=== PATIENT | female | born 1995 | race Caucasian/White ===

== ENCOUNTER 2017-09-07 13:00 | Inpatient (IN) | payer OTHER, BC ==
[2017-09-07] MEDS: FLUoxetine 20 MG CAP PO (09:00)
[2017-09-07] MEDS ORDERED: ACETAMINOPHEN TAB 650MG DOSE (2X325MG) PO (20:15)
[2017-09-07] MEDS ORDERED: traZODone 50 MG TAB PO (20:15)
[2017-09-07] MEDS ORDERED: MAALOX 30 ML SUSP *UDC PO (20:15)
[2017-09-07] MEDS: LORazepam 1 MG TAB PO (20:52)
[2017-09-07] MEDS ORDERED: PILL CUTTER/CRUSHER XX (21:00)
[2017-09-08] MEDS: FLUoxetine 20 MG CAP PO (08:34)
[2017-09-08] MEDS: ESCITALOPRAM OXALATE 10 MG TAB (LEXAPRO) PO (11:29)
[2017-09-08] MEDS: hydrOXYzine 25 MG TAB PO (16:47)
[2017-09-08 17:56] LABS: KETONE, URINE AUTO RFX NEGATIVE (NEGATIVE); LEUKOCYTE ESTERASE UR AUTO RFX NEGATIVE (NEGATIVE); NITRITE, URINE AUTO RFX NEGATIVE (NEGATIVE); RBC, URINE AUTO RFX 56 /HPF (0-3); SPECIFIC GRAVITY UR AUTO RFX 1.005 (1.002-1.035); SQUAM EPITHELIAL CELL UR AURFX 0 /HPF (0-6); WBC, URINE AUTO RFX 3 /HPF (0-3)
[2017-09-08] MEDS: TIMOLOL XE GFS 0.5% OPHTH 5 ML OU (21:50)
[2017-09-09 07:55] LABS: FREE THYROXINE INDEX 2.7 % (1.3-4.8); T UPTAKE 36 % (30-39); THYROXINE (T4) 7.4 UG/DL (4.5-12.0)
[2017-09-09] MEDS ORDERED: ENTER DRUG NAME HERE (PATIENT'S OWN MED) OU (09:00)
[2017-09-09] MEDS: ESCITALOPRAM OXALATE 10 MG TAB (LEXAPRO) PO (09:17)
[2017-09-09] MEDS: hydrOXYzine 25 MG TAB PO ×2 (09:53→22:23)
[2017-09-09] MEDS: MOM 30ML SUSPENSION UDC PO (17:45)
[2017-09-09] MEDS: TIMOLOL XE GFS 0.5% OPHTH 5 ML OU (21:54)
[2017-09-10] MEDS: ESCITALOPRAM OXALATE 10 MG TAB (LEXAPRO) PO (08:17)
[2017-09-10] MEDS: TIMOLOL XE GFS 0.5% OPHTH 5 ML OU (22:29)
[2017-09-10] MEDS: hydrOXYzine 25 MG TAB PO (22:30)
[2017-09-11] MEDS: ESCITALOPRAM OXALATE 10 MG TAB (LEXAPRO) PO (08:31)
[2017-09-11] MEDS ORDERED: ESCITALOPRAM OXALATE 10 MG TAB (LEXAPRO) PO (21:00)
== END 2017-09-11 15:50 | disposition home or self-care (01) | DRG 880 ==
LOC: M ED 13:00 → M ED INP 17:40 → M PSY 18:41
DX: F41.0 Panic disorder [episodic paroxysmal anxiety] (principal); Z81.8 Family history of other mental and behavioral disorders; F34.1 Dysthymic disorder; F41.1 Generalized anxiety disorder; Z79.899 Other long term (current) drug therapy; Z88.8 Allergy status to other drugs, medicaments and biological substances